=== PATIENT | female | born 1950 | race Caucasian/White ===

== ENCOUNTER 2020-02-11 08:24 | Day surgery (SDC) | payer MEDICARE, OTHER ==
[2020-02-11] MEDS ORDERED: BUFFERED LIDOCAINE 10 ML SYRINGE ONE (09:35)
[2020-02-11] MEDS ORDERED: LIDOCAINE 1%-EPI 1:100000 20 ML MDV ONE (09:42)
[2020-02-11] MEDS ORDERED: BUPIVACAINE 0.5% PF 30 ML VIAL ONE (09:42)
--- NOTE | 2020-02-11 12:58 | ANESTHESIA ---
Pre-Anesthesia VS, & Labs - Diagnosis Left breast cancer - Procedure Left breast lumpectomy with SN biopsy Vital Signs: Temp Pulse Resp BP Pulse Ox 36.8 C 67 18 184/77 H 99 02/11/20 08:47 02/11/20 08:47 02/11/20 08:47 02/11/20 08:47 02/11/20 08:47 Height: 5 ft 8 in Weight (kg): 66.2 kg Body Mass Index: 22.1 BMI Classification: Healthy weight - NPO >8 hours Last Fluid Intake: 0615 black coffee - Is Patient ?: No Home Medications and Allergies Home Medications: Ambulatory Orders Atorvastatin Calcium [Lipitor] 40 mg PO DAILY 01/30/20 Hydrochlorothiazide 12.5 mg PO DAILY 01/30/20 Lisinopril [Zestril] 50 mg PO DAILY 01/30/20 Atorvastatin Calcium [Lipitor] 40 mg PO DAILY 01/30/20 Hydrochlorothiazide 12.5 mg PO DAILY 01/30/20 Lisinopril [Zestril] 50 mg PO DAILY 01/30/20 Allergies/Adverse Reactions: Allergies Allergy/AdvReac Type Severity Reaction Status Date / Time epinephrine AdvReac panic Verified 01/30/20 12:22 attack Anes History & Medical History - Anesthetic History Anesthesia Complications: reports: No previous complications - Medical History Cardiovascular: reports: Hypertension, High cholesterol Pulmonary: reports: None Gastrointestinal: reports: GERD (barrets esophagus) Urinary: reports: None Neuro: reports: Headaches (CPH) Musculoskeletal: reports: Osteoarthritis Endocrine/Autoimmune: reports: None Blood Disorders: reports: None Skin: reports: None Smoking Status: Never smoker Psychosocial: reports: Alcohol (glass a wine 3-4 times per week) History of Cancer?: Yes - Surgical History General: Colonoscopy, EGD Exam General: Alert, Oriented x3, Cooperative, No acute distress Dental: WNL Mouth Openin Fingerbreadth Neck Mobility: Normal Mallampati classification: I Thyromental Distance: 4-6 cm Mental/Cognitive Status: Alert/Oriented X3, Normal for patient Plan Anesthesia Type: General Consent for Procedure(s) Verified and Reviewed: Yes Code Status: Attempt Resuscitation ASA classification: 2-Mild systemic disease Is this case an emergency?: No
[2020-02-11] MEDS ORDERED: CEFAZOLIN SODIUM IN 0.9 % NACL 2 GM/100 ML BAG IV ONE (13:16)
[2020-02-11] MEDS ORDERED: LIDOCAINE-MPF 2% 5 ML VIAL IM ONE (13:32)
[2020-02-11] MEDS ORDERED: ONDANSETRON 4 MG/2 ML VIAL IVP ONE (13:32)
[2020-02-11] MEDS ORDERED: fentaNYL 100 MCG/2 ML VIAL IVP ONE (13:32)
[2020-02-11] MEDS ORDERED: ePHEDrine 50 MG/ML VIAL IVP ONE (13:32)
[2020-02-11] MEDS ORDERED: ACETAMINOPHEN 1,000 MG/100 ML 100 ML IV ONE (13:32)
[2020-02-11] MEDS ORDERED: PROPOFOL 200 MG/20 ML VIAL IVP ONE (13:32)
[2020-02-11] MEDS ORDERED: MIDAZOLAM 2 MG/2 ML VIAL IVP ONE (13:32)
[2020-02-11] MEDS ORDERED: DEXAMETHASONE 4 MG/ML VIAL IVP ONE (13:32)
[2020-02-11] MEDS ORDERED: BUPIVACAINE 0.5% PF 30 ML VIAL INFIL ONE ×2 (13:53)
[2020-02-11] MEDS ORDERED: NALOXONE 0.4 MG/ML VIAL IVP PRN (13:54)
[2020-02-11] MEDS ORDERED: ePHEDrine 50 MG/ML VIAL IVP PRN (13:54)
[2020-02-11] MEDS ORDERED: MORPHINE 2 MG/ML CARPUJECT IVP PRN (13:54)
[2020-02-11] MEDS ORDERED: fentaNYL 100 MCG/2 ML VIAL IVP PRN (13:54)
[2020-02-11] MEDS ORDERED: HYDROmorphone 0.5 MG/0.5 ML SYRINGE IVP PRN (13:54)
[2020-02-11] MEDS ORDERED: ONDANSETRON 4 MG/2 ML VIAL IVP PRN ×2 (13:54→14:51)
[2020-02-11] MEDS ORDERED: ATROPINE ABBOJECT 1 MG/10 ML SYRINGE IVP PRN (13:54)
[2020-02-11] MEDS ORDERED: LIDOCAINE 1%-EPI 1:100000 20 ML MDV SUBQ ONE ×2 (13:59)
[2020-02-11] MEDS ORDERED: LACTATED RINGERS 1,000 ML IV SCH (14:00)
--- NOTE | 2020-02-11 14:43 | OPERATIVE REPORT ---
Operative Report - General Procedure Date: 02/11/20 Planned Procedure: Left breast lumpectomy and sentinel node biopsy Pre-Op Diagnosis: Left breast cancer Procedure Performed: Left breast lumpectomy and sentinel node biopsy Post Op Diagnosis: Left breast cancer - Procedure Note Primary Surgeon: Brian Anesthesia Provider: Ivanna Zaragoza Anesthesia Technique: General LMA Pathology: 1. Right breast specimen - short stitch superior, long stitch lateral and wire anterior 2. Additional posterolateral margin - short stitch superior, long stitch lateral and double stitch anterior (abutting the posterolateral margin of the specimen) Estimated Blood Loss (mL): 25 Findings: One sentinel node with 10 second count of 1001 in a background of 4. Background in the room was 0 Complications: None apparent - Other Other Information/Narrative: After obtaining informed consent, the patient was brought to the operating room and placed in the supine position on the operating table. Following successful induction of general endotracheal anesthesia, appropriate padding of all bony prominences, and placement of appropriate monitors, the left breast was prepped and draped in the standard surgical fashion. A timeout was held per scope protocol. All elements of the surgical safety checklist were followed before, during, and after the procedure. We began the procedure with a sentinel node dissection. The neoprobe was used to identify the site of greatest uptake at level 2 in the patient's axilla. An incision was created over this area of uptake and carried through the skin and subcutaneous tissue to enter the axillary node packet. The first sentinel node was easily identified with the neoprobe but was quite small, only 5 mm or so. It was carefully dissected free from surrounding structures sharply, all lymphatics and vasculature were addressed with clips prior to division. The node was liberated into the field. 10-second counts are recorded. Survey of the axilla revealed no additional uptake and a background count of 4. The axilla was examined for hemostasis. It was irrigated with warm water and aspirated free of fluid and particulate matter. Background in the axilla was checked and found to be 19-29. Background in the room was 0. The axillary incision was then closed in 2 layers with Vicryl and Monocryl sutures. We turned our attention to the left breast mass. The area over the mass and in the periareolar region was infiltrated with a mixture of local anesthetics to create to field block. An incision was then created in the lateral aspect of the breats to inlude the wire and the index lesions. The mass and wire were carefully dissected sharply from the dermis anteriorly and from the muscle posteriorly. The retromammary bursa was not adherent to the underlying muscle. The mass was removed moved in a single piece in a medial to lateral fashion. It was marked with a short stitch superior, long stitch lateral, and the wire marked the anterior surface. It was finally liberated sharply and delivered into the field. The wound was checked for hemostasis. The poterolateral margin appeared visually close. For this region, an additional margin was taken here sharply. It wsa marged for orientation and submitted with the specimen. This final margin left only the pectoralis muscle as a posterior land pb. The breast was checked for hemos tasis. It was irrigated again with warm water. The biopsy cavity was then marked for orientation with clips peripherally and centrally. Dr. Ashford (Radiologist) called back and reported the specimen contained the index lesion. The wound was then closed in 2 layers with Vicryl and Monocryl sutures. All sponge, needle, and instrument counts were correct at the conclusion of the case. The patient was let awakened anesthesia without difficulty and taken to the postanesthesia care unit in good condition.
[2020-02-11] MEDS ORDERED: LACTATED RINGERS 1,000 ML IV ONE (14:49)
[2020-02-11] MEDS ORDERED: ACETAMINOPHEN 325 MG TABLET PO PRN (14:51)
[2020-02-11] MEDS ORDERED: oxyCODONE 5 MG TABLET PO PRN (14:51)
[2020-02-11] MEDS ORDERED: IBUPROFEN 600 MG TABLET PO PRN (14:51)
--- NOTE | 2020-02-11 15:08 | ANESTHESIA POST OP EVALUATION ---
Anesthesia Post Eval - Post Anesthesia Eval Vitals: Last Vital Signs Temp 36.4 C L 02/11/20 14:55 Pulse 75 02/11/20 15:00 Resp 17 02/11/20 15:00 BP 140/70 H 02/11/20 15:00 Pulse Ox 100 02/11/20 15:00 CV Function Including HR & BP: positive: Stable Pain Control: positive: Satisfactory Nausea & Vomiting: positive: Negative Mental Status: positive: Baseline Respiratory Status: Airway Patent Hydration Status: Satisfactory Anesthesia Complications: positive: None
[2020-02-11] MEDS ORDERED: BUFFERED LIDOCAINE 10 ML SYRINGE IU ONE (15:17)
--- NOTE | 2020-02-11 16:09 | Nuclear Medicine Report ---
PROCEDURE: Lymph Node Scintigraphy INDICATIONS: LEFT BREAST CA RADIOPHARMACEUTICAL: 0.5-1.0 mCi Millipore filtered Tc-99m sulfur colloid. TECHNIQUE: The area around the nipple was prepped and draped in a sterile fashion. Tc-99m sulfur colloid was in jected intra-dermally in the outer edge of the areola in the left breast. Images were obtained subse quently. A body contour outline was obtained. FINDINGS: Trace or remained at injection site. IMPRESSION: Administration of radiotracer into the left breast periareolar region for intra-operativ e sentinel lymph node localization. Reviewed by: Holly Bhagat MD on 02/11/2020 4:07 PM PST Approved by: Holly Bhagat MD on 02/11/2020 4:07 PM [facility] Station ID: [id number]
[2020-02-11 16:35] VITALS: BP 138/72
--- NOTE | 2020-02-12 06:36 | Mammography Report ---
MAMMOGRAPHY GUIDED WIRE LOCALIZATION LEFT BREAST: 02/11/2020 CLINICAL: Post wire placement. Correlation is made to exam dated: 12/06/2019 mammogram - [facility]. A wire localization using mammography guidance was performed for the marker clip located in the left breast at 2 o'clock mid depth. This was described on the previous mammography report. The skin was prepped in the usual manner. Topical and local anesthetic was administered to the access site. The localization was approached from the caudocranial aspect. A J-hook wire was inserted into the target ed area under mammography guidance. IMPRESSION: WIRE LOCALIZATION Wire localization for the marker clip in the left breast at 2 o'clock mid depth was successful. Future imaging is recommended as follows: 07/17/2020 breast MRI. This exam was interpreted at Station ID: [id number]. Holly Bhagat M.D. [facility]/:02/11/2020 16:41:38 BI-RADS CATEGORY: () - Unspecified - other recall n/a LATERALITY: (B)
== END 2020-02-11 08:25 | disposition home or self-care (01) ==
LOC: SDS 08:24
PROVIDERS: ATTEND Surgery
PROC: 07B60ZX Excision of Left Axillary Lymphatic, Open Approach, Diagnostic (ICD-10-PCS; 2020-02-11)
PROC: 0HBU0ZZ Excision of Left Breast, Open Approach (ICD-10-PCS; principal; 2020-02-11 10:30)
DX: C50.412 Malignant neoplasm of upper-outer quadrant of left female breast (principal); Z17.0 Estrogen receptor positive status [ER+]; I10 Essential (primary) hypertension
CPT/HCPCS: 19281; 19301; 38525; 78195; J0131; J0690; J7120